=== PATIENT | female | born 1945 | race Caucasian/White ===

== ENCOUNTER 2019-05-09 10:51 | Inpatient (IN) ==
[~2019-05-09 10:51] MED LIST: LIDOCAINE W/ SODIUM BICARB 0.5 ML SYR SUBD ONE; Lactated Ringers 1,000 ML PRIMARY IV ONE; Nasal Sanitizer POPSWAB ampule 3 AMP (Nozin) PREOP DOSE ENOS SCH; Vancomycin 1 gm (Premix) 1 GM/200 ML PIGGYBACK IV ONE; Vancomycin-PHA to Dose IV PRN; ceFAZolin Inj 2gm (Premix) 2 GM/50 ML BAG IV ONE
[2019-05-09] MEDS ORDERED: Vancomycin Inj 1gm vial ONE ×3 (11:05→22:22)
[2019-05-09] MEDS ORDERED: ceFAZolin Inj 2gm (Premix) 2 GM/50 ML BAG IV ONE (11:05)
[2019-05-09] MEDS ORDERED: Lactated Ringers 1,000 ML PRIMARY IV ONE ×5 (11:05→22:34)
[2019-05-09] MEDS ORDERED: LIDOCAINE W/ SODIUM BICARB 0.5 ML SYR ONE (11:05)
[2019-05-09] MEDS ORDERED: Sodium Chloride 0.9% 0 ML ONE (11:05)
[2019-05-09] MEDS ORDERED: Vancomycin 1 gm (Premix) 1 GM/200 ML PIGGYBACK IV ONE (11:08)
[2019-05-09 11:24] LABS: BILIRUBIN,URINE SMALL (NEG); CLARITY,URINE CLEAR (CLEAR); COLOR,URINE YELLOW (Y); GLUCOSE, URINE (UA) NEGATIVE (NEG); OCCULT BLOOD,URINE Trace-intact (NEG); PH,URINE 6.5 (5.0-8.5); PROTEIN,URINE TRACE mg/dl (NEG)
[2019-05-09 11:36] LABS: URINE SAMPLE TYPE CLEAN CATCH URINE
[2019-05-09 11:37] LABS: SQUAMOUS EPITHELIAL CELL,UR MODERATE
[2019-05-09] MEDS ORDERED: LIDOCAINE MPF 2% - 5 ML (20 MG/1 ML) ONE (14:39)
[2019-05-09] MEDS ORDERED: PROPOFOL 10 MG/1 ML (200 MG/20 ML) VIAL IV ONE ×5 (14:39→22:12)
[2019-05-09] MEDS ORDERED: MIDAZOLAM 5 MG/1 ML ONE (14:39)
[2019-05-09] MEDS ORDERED: REMIFENTANIL HCL 2 MG VIAL IV ONE (14:40)
[2019-05-09] MEDS ORDERED: REMIFENTANIL 1 MG/1 ML IV ONE (14:40)
[2019-05-09] MEDS ORDERED: fentaNYL Inj 250 MCG/5 ML VIAL ONE (14:40)
[2019-05-09] MEDS ORDERED: KETAMINE 100 MG/1 ML - 5 ML ONE (14:40)
[2019-05-09] MEDS ORDERED: Sodium Chloride 0.9% vial 50 ML ONE (14:59)
[2019-05-09] MEDS ORDERED: Gentamicin Inj 40 MG/ML VIAL ONE (14:59)
[2019-05-09] MEDS ORDERED: BACITRACIN 50,000 UNIT VIAL IRRIG ONE (15:00)
[2019-05-09] MEDS ORDERED: Sodium Chloride 0.9% vial 10 ML ONE (15:01)
[2019-05-09] MEDS ORDERED: BUPIVACAINE 0.25% W/ EPI - 10 ML VIAL ONE (15:02)
[2019-05-09] MEDS ORDERED: LIDOCAINE HCL 2 % 10 ML JELLY URO-JECT TOPICAL ONE ×2 (15:09→17:06)
[2019-05-09] MEDS ORDERED: DEXMEDETOMIDINE HCL 200 MCG/2 ML VIAL IV ONE (16:01)
[2019-05-09] MEDS ORDERED: DEXAMETHASONE PF 10 MG/1 ML VIAL ONE (16:52)
[2019-05-09] MEDS ORDERED: Propofol 1,000 MG/100 ML VIAL IV ONE ×2 (17:08→19:25)
[2019-05-09] MEDS ORDERED: Acetaminophen 1000mg Inj 1,000 MG/100 ML VIAL IV ONE (19:16)
[2019-05-09] MEDS ORDERED: ceFAZolin 1 GM VIAL ONE (20:24)
[2019-05-09] MEDS ORDERED: Albumin Human Soln 25% 50 GM/200 ML IV.SOLN IV ONE (20:25)
[2019-05-09 21:12] LABS: BILIRUBIN,URINE NEGATIVE (NEG); CLARITY,URINE CLEAR (CLEAR); COLOR,URINE YELLOW (Y); GLUCOSE, URINE (UA) NEGATIVE (NEG); OCCULT BLOOD,URINE NEGATIVE (NEG); PROTEIN,URINE 100 mg/dl (NEG); UROBILINOGEN,URINE 0.2 EU/dL (0.2)
[2019-05-09 21:15] LABS: RBC,URINE 0-2 /hpf; SQUAMOUS EPITHELIAL CELL,UR MODERATE; URINE CRYSTALS MANY; WBC,URINE 0-2
[2019-05-09 21:16] LABS: URINE CASTS MODERATE
[2019-05-09 21:30] LABS: URINE SAMPLE TYPE CATH SPECIMEN
[2019-05-09] MEDS ORDERED: BUPivacaine Inj 0.25% PF - 10ml vial ONE ×2 (22:06→22:22)
[2019-05-09] MEDS ORDERED: BUPivacaine Liposome/PF (Exparel) Inj 20ml vial INFIL ONE (22:06)
[2019-05-09] MEDS ORDERED: HYDROmorphone 2 MG/1 ML ONE (22:34)
[2019-05-10] MEDS ORDERED: ONDANSETRON 4 MG/2 ML VIAL IVP PRN ×2 (00:11→00:57)
[2019-05-10] MEDS ORDERED: LIDOCAINE W/ SODIUM BICARB 0.5 ML SYR SUBD PRN (00:11)
[2019-05-10] MEDS ORDERED: HYDROmorphone 2 MG/1 ML IVP PRN (00:11)
[2019-05-10] MEDS ORDERED: Lactated Ringers 1,000 ML PRIMARY IV SCH (00:15)
[2019-05-10] MEDS ORDERED: MAGNESIUM CITRATE 296 ML SOLUTION PO PRN (00:57)
[2019-05-10] MEDS ORDERED: BISACODYL 5 MG TABLET PO PRN (00:57)
[2019-05-10] MEDS ORDERED: PROMETHAZINE 25 MG/1 ML VIAL IM PRN (00:57)
[2019-05-10] MEDS ORDERED: MAGNESIUM 400 MG/5 ML - 30 ML (MILK OF MAGNESIA) PO PRN (00:57)
[2019-05-10] MEDS ORDERED: oxyCODONE/APAP 7.5/325 Tab 1 TAB TAB PO PRN (00:57)
[2019-05-10] MEDS ORDERED: DIAZEPAM 10 MG/2 ML (5 MG/1 ML) CARPUJECT IVP PRN (00:57)
[2019-05-10] MEDS ORDERED: DIAZEPAM 5 MG TABLET PO PRN (00:57)
[2019-05-10] MEDS ORDERED: Ondansetron ODT Tab 4 MG TAB PO PRN (00:57)
[2019-05-10] MEDS ORDERED: Fleet Enema 133ml RECTAL PRN (00:57)
[2019-05-10] MEDS ORDERED: Prochlorperazine Edisylate Inj 10mg/2ml vial IVP PRN (00:57)
[2019-05-10] MEDS ORDERED: DOCUSATE 100 MG CAPSULE PO PRN (00:57)
[2019-05-10] MEDS ORDERED: Vancomycin-PHA to Dose IV PRN (00:57)
[2019-05-10] MEDS: ceFAZolin Inj 2gm (Premix) 2 GM/50 ML BAG IV SCH ×3 (01:42→16:46)
[2019-05-10] MEDS: oxyCODONE/APAP 10/325 Tab 1 EACH TAB PO PRN ×3 (01:52→10:54)
[2019-05-10 04:55] LABS: BASOPHILS # (AUTO) 0.02 10*3/UL; BASOPHILS % (AUTO) 0.3 % (0-1); EOSINOPHILS # (AUTO) 0.01 10*3/UL; EOSINOPHILS % (AUTO) 0.1 % (0-8); Hemoglobin [HGB] 9.2 g/dL (12.0-16.0); MEAN CORPUSCULAR HGB CONC 31.7 g/dL (33-37); MEAN CORPUSCULAR VOLUME 90.3 FL (81-99); MEAN PLATELET VOLUME 11.4 FL (7.4-12.2); MONOCYTES # (AUTO) 0.18 10*3/UL (0.3-0.8); MONOCYTES % (AUTO) 2.3 % (5-15); NEUTROPHILS # (AUTO) 7.14 10*3/UL; NEUTROPHILS % (AUTO) 89.5 % (50-80); RED BLOOD COUNT 3.21 10^6/uL (4.20-5.40)
[2019-05-10 05:00] LABS: PLATELET MORPHOLOGY COMMENT NORMAL MORPHOLOGY (NORM); RBC MORPHOLOGY COMMENT NORMAL MORPHOLOGY (NORM); WBC MORPHOLOGY COMMENT NORMAL MORPHOLOGY (NORM)
[2019-05-10 05:06] LABS: BLOOD UREA NITROGEN 19 mg/dL (7-22)
[2019-05-10] MEDS: Simvastatin Tab 20 MG TAB PO SCH (08:28)
[2019-05-10] MEDS: POTASSIUM CHLORIDE 20 MEQ TAB PO SCH ×2 (08:28→20:48)
[2019-05-10] MEDS: DULOXETINE 30 MG CAPSULE PO SCH (08:28)
[2019-05-10] MEDS: LOSARTAN 50 MG TABLET PO SCH (08:28)
[2019-05-10] MEDS: AmLODIPine Tab 5 MG TABLET PO SCH (08:29)
[2019-05-10] MEDS: oxyCODONE-ACETAMINOPHEN 5-325 TAB PO PRN ×2 (16:45→20:49)
[2019-05-10 23:10] VITALS: RESP 16
[2019-05-11] MEDS: ceFAZolin Inj 2gm (Premix) 2 GM/50 ML BAG IV SCH ×2 (00:19→08:20)
[2019-05-11] MEDS: oxyCODONE-ACETAMINOPHEN 5-325 TAB PO PRN (04:40)
[2019-05-11 08:15] VITALS: BP 135/71; TEMP 97.5; O2SAT 93
[2019-05-11] MEDS: AmLODIPine Tab 5 MG TABLET PO SCH (08:51)
[2019-05-11] MEDS: LOSARTAN 50 MG TABLET PO SCH (08:51)
[2019-05-11] MEDS: DULOXETINE 30 MG CAPSULE PO SCH (08:51)
[2019-05-11] MEDS: POTASSIUM CHLORIDE 20 MEQ TAB PO SCH (11:10)
[2019-05-11] MEDS: Simvastatin Tab 20 MG TAB PO SCH (11:13)
== END 2019-05-11 13:37 | disposition home or self-care (01) | DRG 30 ==
LOC: OPS 10:51 → MED/SURG 05-10 00:53
PROVIDERS: ADMIT Neurological Surgery; ATTEND Neurological Surgery